=== PATIENT | male | born 1975 | race Two or more races ===

== ENCOUNTER 2024-10-04 12:56 | Emergency (ER) | payer MEDICAID, SELFPAY ==
--- NOTE | 2024-10-04 13:09 | PD.EDMEDCL ---
ED Medical Clearance RME/HPI General Stated complaint: MEDICAL CLEARANCE Time Seen by Provider: 10/04/24 12:58 Arrival date/time: 10/04/24 12:56 RME / HPI RME / HPI Narrative: 48-year-old male patient with no significant medical history, was brought in by law enforcement for medical clearance. Patient apparently was trespassing on property, the desktop engineer called the police and patient was picked up ,brought in for medical clearance. Currently patient is denying any complaints. Related Information Allergies Allergy/AdvReac Type Severity Reaction Status Date / Time No Known Allergies Allergy Unknown Uncoded 01/28/04 09:19 Review of Systems Review of Systems Narrative Review of Systems: Review of system reviewed and within normal limits except mentioned in HPI ED Exam Narrative Physical exam: VITAL SIGNS: Reviewed. GENERAL APPEARANCE: Alert and interactive, follows commands, no acute distress, HEAD AND FACE: Non-traumatic. ENT: PERRL, pink conjunctivitis, eyelid no trauma, Mucous membrane moist. NECK: Supple, nontender, no nuchal rigidity. CHEST: No tenderness, no crepitus, no paradoxical movement, no retractions. LUNGS: Clear, well ventilated, symmetric, no rales, no wheezing, no ronchi, no stridor, good breath sounds bilaterally. HEART: Regular rate, regular rhythm, no murmur, no gallops. ABDOMEN: Soft, positive bowel sounds, nondistended, no guarding, nontender, no rebound, no masses, RECTAL: Deferred. GENITAL: Deferred. NEUROLOGICAL: Gross motor function intact sensory function intact, Appropriate for age. MUSCULOSKELETAL: low back nontender, full range of motion. EXTREMITIES: Nontender, full range of motion. SKIN: Color pink, dry, no rash, no lacerations, no abrasions, no contusions. LYMPHATICS: Deferred. Course Quality Measures none Medical Clearance MDM Narrative MDM Narrative:: 48-year-old male patient with no significant medical history, was brought in by law enforcement for medical clearance. Patient apparently was trespassing on property, the desktop engineer called the police and patient was picked up ,brought in for medical clearance. Currently patient is denying any complaints. Patient data External records reviewed:: None Clinical information provided by:: none Social determinants that could affect healthcare access:: substance use Patient has the following chronic illnesses:: None How is presenting disease/condition affected by chronic disease/condition?: no chronic disease Evaluation data The following diagnostics were reviewed and interpreted by me:: other (specify) (None) Lab and/or radiology exams considered but not ordered:: None Interpretation Summary: None Medications / Prescriptions Medications or Prescriptions considered but not ordered:: None Medication administrations:: None Consultations Consultation(s) initiated? (list below): No Diagnosis Medical Clearance Differential Diagnosis: other (Medical clearance for incarceration,) Most likely diagnosis given after review of the tests above:: Medical clearance for incarceration Admission Indicated Admission indicated?: not indicated Explain why admission is indicated or not indicated:: Patient is medically cleared. Patient is denying any complaints Admission Request Was there a request for admission?: No Disposition Plan Disposition Plan: Discharge Discharge Attestation Discharge Attestation: Patient condition: Stable Discharge Plan Plan Patient Disposition: HOME (Self Care) Disposition Comment: stable Problem List Clinical Impression: Medical clearance for incarceration Patient/Caregiver Discharge Instructions Education Materials: Reducing Your Health Risks ... Additional Instructions: Thank you for the opportunity for serving you today. You are stable for discharged . You are advised to: Follow-up with your PCP in 1 to 2 days Return to ED for worsening of symptoms Increase oral fluids Print Language: Macedonian Stand Alone Forms: Claudine Award Info., Patient Portal Info Letter SHELLI/CARRIE Supervising Physician SHELLI/CARRIE Supervising Physician: MD Danny
[2024-10-04 13:17] VITALS: BMI 26.3
[2024-10-04 13:20] VITALS: BP 149/86; PULSE 89; RESP 18; TEMP 36.6; O2SAT 98
== END 2024-10-04 13:41 | disposition home or self-care (01) ==
LOC: SERX 13:36
PROVIDERS: Emergency Provider Emergency Medicine
DX: Z02.89 Encounter for other administrative examinations (principal)
CPT/HCPCS: 99281

== ENCOUNTER 2025-10-15 02:53 | Inpatient (IN) | payer MEDICAID, SELFPAY ==
[2025-10-15] VITALS (29 sets, daily range): BP systolic 147–246; BP diastolic 96–153; PULSE 67–103; RESP 13–37; TEMP 36.6–36.9; O2SAT 92–99; BMI 29.9
--- NOTE | 2025-10-15 04:19 | XR_ITS ---
EXAMINATION: PA lateral chest 2 views TECHNIQUE: Upright PA lateral chest 2 views Date and time: October 15, 2025, 0421 hours INDICATIONS: Coughing beginning 6 weeks ago with chest pain today. FINDINGS: Mild heart failure Moderate enlargement cardiac contour Prominent vascular congestion including central vascular engorgement Subtle septal edema at the lung bases IMPRESSION: Mild CHF
--- NOTE | 2025-10-15 04:20 | PD.EDRME ---
Rapid Medical Screening Exam E Arrival date/time: 10/15/25 02:53 50M with no significant PMH presents to ED with 2 months of cough and intermittent SOB. Patient came into today because SOB is getting worse. Patient was given course of amoxicillin w/o improvement. Chief Complaint: Shortness of Breath/Dyspnea Vital signs: Vital Signs Temperature 98.3 F 10/15/25 04:03 Pulse Rate 93 10/15/25 04:03 Respiratory Rate 24 H 10/15/25 04:03 Blood Pressure 246/149 H 10/15/25 04:03 Pulse Oximetry (%) 97 10/15/25 04:03 Oxygen Delivery Method Room Air 10/15/25 04:03 Exam: Increased WOB, but clear lungs. Clinical Impression: CHF vs CAP vs PE vs hypertensive urgency/emergency
[2025-10-15] MEDS: NITROGLYCERIN 0.4 MG SUBL BTL #25 SL (04:44)
--- NOTE | 2025-10-15 04:47 | EKG_ITS ---
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
[2025-10-15 05:43] LABS: Lactate (Lactic Acid) 1.2 mMol/L (0.4-2.0)
[2025-10-15 05:43] LABS: Collection Type, Urine Clean Catch
[2025-10-15 06:01] LABS: Bilirubin,Urine Negative (Negative); Blood,Urine Negative (Negative); Clarity,Urine Clear (Clear/Hazy); Color,Urine Lt-Yellow (Lt Yel-Yel); Culture Indicated,Urine Not Indicated; Glucose, Urine Trace (Negative); Ketones,Urine Negative (Negative); Leukocyte Esterase,Urine Negative (Negative); Nitrite,Urine Negative (Negative); PH,Urine 6.0 (5.0-7.0); Protein,Urine Trace (Neg - Trace); RBC,Urine 3 /hpf (0-3); Specific Gravity,Urine 1.020 (1.001-1.035); Squamous Epithelial Cell,Urine < 1 /hpf (0-5); Urobilinogen,Urine Negative mg/dL (0.0-1.0); WBC,Urine < 1 /hpf (0-5)
[2025-10-15 06:15] LABS: Basophils # (Auto) 0.1 Thou/mm3 (0.0-0.2); Basophils % (Auto) 1 % (0-2.5); Eosinophils # (Auto) 0.2 Thou/mm3 (0.0-0.5); Eosinophils % (Auto) 2 % (0-10); Hematocrit 39.5 % (41.0-53.0); Hemoglobin 13.4 g/dL (13.5-16.0); Immature Granulocytes Auto 0.03 Thou/mm3 (0.00-0.00); Lymphocytes # (Auto) 1.7 Thou/mm3 (1.0-4.8); Lymphocytes % (Auto) 17 % (10-50); Mean Corpuscular HGB Conc 33.9 g/dl (31.0-37.0); Mean Corpuscular Hemoglobin 30.5 pg (25.0-35.0); Mean Corpuscular Volume 90 fL (80-100); Monocytes # (Auto) 0.9 Thou/mm3 (0.0-0.8); Monocytes % (Auto) 9 % (0-12); Neutrophils # (Auto) 7.2 Thou/mm3 (1.8-7.7); Neutrophils % (Auto) 71 % (37-80); Nucleated Red Blood Cell # 0.00 Thou/mm3 (0.00-0.00); Nucleated Red Blood Cell % 0 /100 WBC (0); Platelet Count 276 Thou/mm3 (140-440); RDW Standard Deviation 42.6 fL (35.1-43.9); Red Blood Count 4.39 Miln/mm3 (4.50-5.90); White Blood Count 10.1 Thou/mm3 (3.8-10.6)
--- NOTE | 2025-10-15 06:15 | EDNOTE_ITS ---
ED SOB =RME/HPI General Chief Complaint: Shortness of Breath/Dyspnea Stated Complaint: cough, diff breathing Time Seen by Provider: 10/15/25 06:12 Arrival date/time: 10/15/25 02:53 RME / HPI RME / HPI Narrative: 10/15/25 02:53 50M with no significant PMH presents to ED with 2 months of cough and intermittent SOB. Patient came into today because SOB is getting worse. Patient was given course of amoxicillin w/o improvement. DR. MIRZA MAIN ED EVALUATION 50 year old male with no stated chronic medical history presents to the ED for evaluation of shortness of breath beginning 1 month ago. Described feeling he is not getting enough air with no known modifying factors at home. Accompanied by subjective fevers, chills, and nonproductive cough. Additionally reported 1 week ago he consulted his dentist at [facility] for dental pain and diagnosed with a dental abscess. States he was told due to his blood pressure they were unable to perform any dental work and given an antibiotic injection. States he has yet to consult with PCP regarding elevated blood pressure. No other associated symptoms reported. Exam: Increased WOB, but clear lungs. Impression: CHF vs CAP vs PE vs hypertensive urgency/emergency Related Data Allergies Allergy/AdvReac Type Severity Reaction Status Date / Time No Known Allergies Allergy Unknown Uncoded 10/15/25 04:07 Review of Systems Review of Systems Systems Reviewed: All systems reviewed, normal except as documented Past Medical History Past Medical History CARDIAC: Positive Hypercholesterolemia and Hypertension GASTROINTESTINAL: Positive Gastrointestinal Disorders and Ulcer Surgical History SURGICAL: Positive Abdominal Surgery (GASTRIC ULCER REPAIR) Social History SMOKING STATUS: Current every day smoker ED Exam Narrative Physical exam: GENERAL APPEARANCE: alert and oriented x 4, well-developed, well- nourished,diaphoretic, mildly plethoric HEENT: Normocephalic, atraumatic; pupils equal, round, reactive to light; EOMI; mucous membranes pink, moist; oropharynx clear NECK: Supple LUNGS: Upper airway noise, CTABL; no wheezes, no rales, no rhonchi HEART: Regular rate, regular rhythm; normal S1, S2; no murmurs ABDOMEN: non distended; normal BS; soft, no tenderness, no guarding, no rebound; no masses, no organomegaly, no hernia EXTREMITIES: atraumatic; no edema NEUROLOGIC: awake; alert and oriented x4; cranial nerves II-XII grossly intact; no focal sensory or motor deficits PSYCHIATRIC: appropriate mood and affect SKIN: warm, dry, normal color; no rashes Course Quality Measures none Orders Category Date Time Status EKG (ED ONLY) *Do not use* NOW Care 10/15/25 04:47 Completed EKG (ED Only) Stat Exams 10/15/25 04:47 Draft XR chest 2V Stat Exams 10/15/25 04:19 Completed B-Type Natriuretic Peptide Stat Lab 10/15/25 04:37 Completed CBC Stat Lab 10/15/25 04:37 Completed COVID-19 Antigen (In-House) Stat Lab 10/15/25 07:37 Completed Cocci Serology IgM with reflex to IgG [Cocci Serology, Lab 10/15/25 04:37 Received Unk History] Stat Comprehensive Metabolic Panel Stat Lab 10/15/25 04:37 Completed Drug Screen,Urine Stat Lab 10/15/25 04:25 Completed FLU A&B [Influenza A & B Rapid Panel] Stat Lab 10/15/25 07:37 Completed Lactate (Lactic Acid) Stat Lab 10/15/25 05:40 Completed Mag [Magnesium] Urgent Lab 10/15/25 04:37 Completed Partial Thromboplastin Time Stat Lab 10/15/25 04:37 Completed Procalcitonin Stat Lab 10/15/25 04:37 Completed Prothrombin Time with INR Stat Lab 10/15/25 04:37 Completed Troponin I Stat Lab 10/15/25 04:37 Completed Urinalysis, C/S if Indicated Stat Lab 10/15/25 04:25 Completed Aspirin Chew Med 10/15/25 06:36 Discontinued 324 mg PO X1 ONE Labetalol* IV [Trandate* IV] Med 10/15/25 06:40 Discontinued 20 mg IVP X1 ONE Magnesium Sulfate 2 GM Ivpb [Magnesium Sulfate Ivpb] Med 10/15/25 07:17 Discontinued 2 gm in 50 ml IV X1 Nitroglycerin [Nitrostat 1/150] Med 10/15/25 04:19 Discontinued 0.4 mg SL X1 ONE POTASSIUM CHL 10% Liq 15 ML Med 10/15/25 07:17 Discontinued 40 meq PO X1 ONE hydrALAZINE HCL [Apresoline] Med 10/15/25 04:19 Discontinued 25 mg PO X1 ONE Vital Signs Vital signs: Vital Signs Temperature 98.3 F 10/15/25 04:03 Pulse Rate 93 10/15/25 04:03 Respiratory Rate 24 H 10/15/25 04:03 Blood Pressure 246/149 H 10/15/25 04:03 Pulse Oximetry (%) 97 10/15/25 04:03 Oxygen Delivery Method Room Air 10/15/25 04:03 Pulse ox is 97% on room air which is adequate. Shortness of Breath / Dyspnea MDM Narrative MDM Narrative:: Sophy Phipps am scribing for and in the presence of Dr. Mirza. 0705a: I spoke with hospitalist for admission. Discussed patients PMHx, HPI, ED course, exam findings, labs, and radiology results. Patient data External records reviewed:: [facility] previous records Clinical information provided by:: patient Social determinants that could affect healthcare access:: none Patient has the following chronic illnesses:: No known chronic medical hx How is presenting disease/condition affected by chronic disease/condition?: no chronic disease Evaluation data The following diagnostics were reviewed and interpreted by me:: lab results, radiology exam(s) and EKG tracing(s) (EKG @ 04:50am, interpreted by me, normal sinus rhythm, rate 90, ST depression V3-V5, right bundle branch block, IVCD, T- wave inversion in lead III V1 and V1 V2. No previous EKG for comparison. ) Lab and/or radiology exams considered but not ordered:: None Interpretation Summary: Ordering Physician: Marty Hernandez PA-C Date of Service: 10/15/25 Procedure(s): XR chest 2V Accession Number(s): [id number] cc: Honorio Taylor MD; NO PRIMARY/FAMILY,PHYSICIAN; Marty Hernandez PA-C~ EXAMINATION: PA lateral chest 2 views TECHNIQUE: Upright PA lateral chest 2 views Date and time: October 15, 2025, 0421 hours INDICATIONS: Coughing beginning 6 weeks ago with chest pain today. FINDINGS: Mild heart failure Moderate enlargement cardiac contour Prominent vascular congestion including central vascular engorgement Subtle septal edema at the lung bases IMPRESSION: Mild CHF Dictated By: Honorio Taylor MD Signed By: <Electronically signed by Honorio Taylor MD in OV> 10/15/25 0718 Medications / Prescriptions Medications or Prescriptions considered but not ordered:: None Medication administrations:: Medication Administration History Acetaminophen (Acetaminophen 325 Mg Tablet) 650 mg PO Q6H PRN PRN Reason: Fever >100.4 or pain Stop: 11/14/25 07:48 Aspirin (Aspirin Ec 81 Mg Tabec) 81 mg PO QDAY [facility] Stop: 11/15/25 08:59 Atorvastatin Calcium (Atorvastatin Calcium 20 Mg Tablet) 40 mg PO HS [facility] Stop: 11/14/25 20:59 Hydralazine HCl (Hydralazine Inj 20 Mg/Ml Vial) 10 mg IVP Q4HR PRN PRN Reason: SBP >180 Stop: 11/14/25 08:09 Last Admin: 10/15/25 10:14 Dose: 10 mg Documented By: MARY Heparin Sodium/Dextrose (Heparin In D5w Ivpb) 25,000 unit in 250 mls @ 9.798 mls/hr IV .Q24H [facility]; Protocol Stop: 10/29/25 09:44 Discontinued Medications Aspirin (Aspirin 81 Mg Chew) 324 mg PO X1 ONE Stop: 10/15/25 06:37 Last Admin: 10/15/25 06:42 Dose: 324 mg Documented By: WANDA Heparin Sodium (Porcine) (Heparin Sod Inj 5000 Unit/Ml Vial) 5,000 unit SC Q12HR [facility] Stop: 10/29/25 08:59 Heparin Sodium (Porcine) (Heparin Sod Inj 5000 Unit/Ml Vial) 5,000 unit SC Q8HR SHANNAN Stop: 10/29/25 13:59 Heparin Sodium (Porcine) (Heparin Sod Inj 5000 Unit/Ml Vial) 4,000 unit IV X1 ONE; Protocol Stop: 10/15/25 09:43 Hydralazine HCl (Hydralazine Hcl 25 Mg Tablet) 25 mg PO X1 ONE Stop: 10/15/25 04:20 Last Admin: 10/15/25 04:43 Dose: 25 mg Documented By: WANDA Magnesium Sulfate (Magnesium Sulfate Ivpb) 2 gm in 50 mls @ 25 mls/hr IV X1 ONE Stop: 10/15/25 09:16 Last Admin: 10/15/25 07:46 Dose: 25 mls/hr Documented By: MARY Labetalol HCl (Labetalol Inj 5 Mg/Ml Vial 4 Ml) 20 mg IVP X1 ONE Stop: 10/15/25 06:41 Last Admin: 10/15/25 07:05 Dose: 20 mg Documented By: WANDA Nitroglycerin (Nitroglycerin 0.4 Mg Subl Btl #25) 0.4 mg SL X1 ONE Stop: 10/15/25 04:20 Last Admin: 10/15/25 04:44 Dose: 0.4 mg Documented By: WANDA Potassium Chloride (Potassium Chloride 10% 20 Meq/15 Ml Udc) 40 meq PO X1 ONE Stop: 10/15/25 07:18 Last Admin: 10/15/25 07:46 Dose: 40 meq Documented By: MARY See above Consultations Consultation(s) initiated? (list below): Yes Consultation #1 (Physician, Specialty, Details): See MDM Diagnosis Shortness of Breath Differential Diagnosis: acute exacerbation of chronic obstructive airways disease, congestive heart failure, community acquired pneumonia and asthma with exacerbation Most likely diagnosis given after review of the tests above:: Hypertensive emergency Elevated troponin Cough Admission Indicated Admission indicated?: indicated Admission Request Was there a request for admission?: Yes Admission Attestation Admission request attestation: Discussed case with [] from Hospitalist service regarding admission. Discussed patients ED course, exam findings, labs, and radiology results. The Hospitalist [agrees,declines] to accept the patient for admission. Disposition Plan Disposition Plan: Admit Discharge Plan Plan Patient Disposition: Admit Acute Care w/in Hospital Problem List Clinical Impression: Hypertensive emergency, Elevated troponin, Cough
[2025-10-15 06:23] LABS: Amphetamine/Methamp Scrn,U Positive (Negative); Barbiturate Screen,Urine Negative (Negative); Benzodiazepines Screen,Urine Negative (Negative); Benzoylecgonine Screen, Ur Negative (Negative); Fentanyl Screen,Urine Negative (Negative); Opiate Screen,Urine Negative (Negative); THC Screen,Urine Negative (Negative)
[2025-10-15 06:30] LABS: Alanine Aminotransferase 117 U/L (10-49); Albumin, Serum 4.3 gm/dL (3.5-5.0); Albumin/Globulin Ratio 1.8 (1.2-2.2); Alkaline Phosphatase 144 U/L (46-116); Anion Gap 11 (7-16); Aspartate Amino Transferase 88 U/L (0-34); BUN/Creatinine Ratio 14 Ratio (12-20); Bilirubin,Total 0.5 mg/dL (0.3-1.2); Blood Urea Nitrogen 21 mg/dL (9-23); Calcium 8.8 mg/dL (8.3-10.6); Calcium (Corrected) 8.8 mg/dL (8.5-10.1); Carbon Dioxide 25.1 mMol/L (20.0-31.0); Chloride 107 mMol/L (98-107); Creatinine (Component) 1.5 mg/dL (0.6-1.3); Estimated Creatinine Clearance 58.0 mL/min (>60); Globulin 2.4 gm/dL (2.3-3.5); Glucose 107 mg/dL (74-106); Osmolality,Calculated 287 (275-295); Potassium 3.8 mMol/L (3.4-5.1); Procalcitonin 0.11 ng/ml (0.0-0.49); Sodium 143 mMol/L (136-145); Total Protein 6.7 gm/dL (5.7-8.2); eGFR 56 See Note
[2025-10-15 06:32] LABS: Troponin I 0.274 ng/mL (0.0-0.045)
[2025-10-15 06:41] LABS: INR 1.0 (0.9-1.3); Partial Thromboplastin Time 27.6 Seconds (22.0-36.0); Prothrombin Time 10.9 Seconds (9.0-12.2)
[2025-10-15] MEDS: ASPIRIN 81 MG CHEW 324 MG PO (06:42)
[2025-10-15] MEDS: Magnesium Sulfate 2 GM Ivpb 2 GM/50 ML BAG IV (07:46)
[2025-10-15] MEDS: POTASSIUM CHLORIDE 10% 20 MEQ/15 ML UDC 40 MEQ PO (07:46)
--- NOTE | 2025-10-15 07:53 | ECHO_ITS ---
Patient Info Name: Rigoberto Holloway Age: 50 years : 1975 Gender: Male Ht: 165 cm Wt: 82 kg BSA: 1.96 m2 BP: 180 / 133 mmHg HR: 88 bpm Exam Date: 10/15/2025 12:38 PM Admit Date: 10/15/2025 Site: [facility] Room Number: 250 Patient Status: I Exam Type: CA echo doppler complete Community Coordinator For High School: Radha De La Rosa Ordering Physician: Geovanna Garcia Study Info Indications chest pain and SOB - Primary Location: S2SX Left Ventricular Outflow Tract Name Value Normal LVOT 2D LVOT Diameter 2.0 cm LVOT Doppler LVOT Peak Velocity 106 cm/s LVOT Mean Gradient 3 mmHg LVOT VTI 16 cm LVOT VTI/AV VTI Ratio 0.8 LVOT Stroke Volume 51 ml Pulmonic Valve Name Value Normal PV Doppler PV Peak Velocity 88 cm/s PV Regurgitation Doppler [place] Peak End Diastolic Velocity 163 cm/s Mitral Valve Name Value Normal MV Doppler MV Decel Wilson 1,417 cm/s2 MV PHT 21 ms MV Area (PHT) 10.3 cm2 4.0-5.0 MV Diastolic Function MV E Peak Velocity 105 cm/s MV A Peak Velocity 49 cm/s MV E/A 2.1 MV Annular TDI MV Septal e' Velocity 4.5 cm/s MV E/e' (Septal) 23.5 MV Lateral e' Velocity 5.4 cm/s MV E/e' (Lateral) 19.3 MV e' Average 4.95 cm/s MV E/e' (Average) 21.4 Tricuspid Valve Name Value Normal TV Regurgitation Doppler TR Peak Velocity 381 cm/s Estimated PAP/RSVP RA Pressure 3 mmHg <=5 PA Systolic Pressure 61 mmHg <36 RV Systolic Pressure 61 mmHg <36 TV Annular TDI TV Lateral Linda s' Velocity 10.9 cm/s >=9.5 Aortic Valve Name Value Normal AV 2D/MM AV Cusp Sep (MM) 1.5 cm AV Doppler AV Peak Velocity 133 cm/s AV Mean Gradient 4 mmHg AV VTI 20 cm AV Area (Cont Eq VTI) 2.5 cm2 >=3.0 AV Area (Cont Eq Boy) 2.5 cm2 AV DI (Boy) 0.80 AV Regurgitation 2D LVOT Area 3.1 cm2 Ventricles Name Value Normal LV Dimensions 2D/MM IVS Diastolic Thickness (2D) 1.1 cm 0.6-1.0 LVID Diastole (2D) 5.8 cm 4.2-5.8 LVIW Diastolic Thickness (2D) 1.3 cm 0.6-1.0 LVID Systole (2D) 4.9 cm 2.5-4.0 LVOT Diameter 2.0 cm LV Mass (2D Cubed) 297.00 g 88.00-224.00 LV Mass Index (2D Cubed) 152 g/m2 49-115 Relative Wall Thickness (2D) 0.45 <=0.42 IVS/LVIW Diastolic Thickness (2D) 0.85 0.00-1.50 LV Fractional Shortening/Ejection Fraction 2D/MM LV Fractional Shortening (2D) 16 % 25-43 LV EF (2D Teichholz) 32 % LV Diastolic Volume (4C MOD) 175 ml LV EF (4C MOD) 30 % LV Diastolic Volume (2C MOD) 162 ml LV EF (2C MOD) 42 % LV Diastolic Volume (BP MOD) 170 ml 62-150 LV Diastolic Volume Index (BP MOD) 87 ml/m2 34-74 LV Systolic Volume (BP MOD) 113 ml 21-61 LV Systolic Volume Index (BP MOD) 58 ml/m2 11-31 LV EF (BP MOD) 34 % 52-72 LV Diastolic Length (4C) 8.6 cm LV Systolic Length (4C) 8.3 cm LV Stroke Volume (4C MOD) 53 ml RV Dimensions 2D/MM TV Lateral Linda s' Velocity 10.9 cm/s >=9.5 Atria Name Value Normal LA Dimensions LA Volume (4C A-L) 90 ml LA Volume (BP A-L) 119 ml Left Ventricle Left ventricular chamber dimension is mildly enlarged. Left ventricular systolic function is moderately reduced with visually estimated ejection fraction of 30-35%. There is moderate concentric hypertrophy noted in the left ventricle. The basal inferior wall, and basal anterior wall are akinetic. The apex, inferoseptal wall, anterolateral wall, mid inferior wall, and mid anterior wall are hypokinetic. The basal anteroseptal, mid anteroseptal, basal inferolateral wall, and mid inferolateral wall are not scored. Left ventricular segmental wall motion is abnormal. There is grade II diastolic dysfunction in the left ventricle. Right Ventricle Right ventricular chamber dimension is mildly enlarged. Right ventricular systolic function is normal. Flattening of the ventricular septum in mid to late systole consistent with right ventricular volume overload. Left Atrium Left atrial chamber dimension is severely enlarged. Right Atrium Right atrial chamber dimension is normal. Aortic Valve The aortic valve is trileaflet. There is no aortic valve sclerosis. There is no aortic valve stenosis with a peak velocity of 133 cm/s, mean gradient of 4 mmHg, and aortic valve area of 2.5 cm2. There is mild aortic valve regurgitation. Pulmonic Valve The pulmonic valve is normal. There is no pulmonic valve stenosis. There is mild pulmonic regurgitation. Mitral Valve The mitral valve has thickened leaflets. There is no mitral valve stenosis. There is mild mitral valve regurgitation. Tricuspid Valve The tricuspid valve leaflets are normal. There is no tricuspid valve stenosis. There is mild to moderate tricuspid valve regurgitation. Pulmonary hypertension, estimated pulmonary arterial systolic pressure is 61 mmHg and systemic blood pressure of 180 mmHg in systole. Pericardium/Pleural The pericardium appears normal. There is no pericardial effusion. No pleural effusion visualized. Inferior Vena Cava Normal inferior vena cava with >50% collapse upon inspiration consistent with normal right atrial pressure, 3 mmHg. Aorta The aortic measurements are indexed to age and body surface area. The aortic root at the sinus of Valsalva is not well visualized. The prox ascending aorta is not well visualized. Summary 1. Left ventricle size is mildly enlarged and systolic function is moderately reduced. Estimated ejection fraction is 30-35%. There is grade II diastolic dysfunction. There is moderate concentric hypertrophy noted. 2. Right ventricle chamber size is mildly enlarged and systolic function is normal. Estimated RVSP is 61 mmHg. Severe HTN. 3. Flattening of the ventricular septum in mid to late systole consistent with right ventricular volume overload. 4. There is mild aortic valve regurgitation. 5. There is mild mitral valve regurgitation. 6. There is mild to moderate tricuspid valve regurgitation. 7. mild pulmonic valve regurgitation. 8. The left atrium is severely enlarged. The right atrium is normal. 9. Normal IVC with estimated RA pressure 3 mmHg. Report Signatures Finalized by Tay Ross on 10/16/2025 08:44 AM
[2025-10-15 08:08] LABS: COVID-19 Antigen (In-House) Negative (Negative); Influenza A Ag Negative; Influenza B Ag Negative
[2025-10-15 08:11] LABS: Magnesium 2.1 mg/dL (1.6-2.6)
[2025-10-15 09:28] LABS: B-Type Natriuretic Peptide 722 pg/mL (0-100)
--- NOTE | 2025-10-15 09:50 | PC.SS ---
Patient Rigoberto Holloway is a 50 Year old male admitted for ACS. SS conducted bedside contact with the patient conduct initial assessment and to discuss discharge planning.? Patient confirmed demographic information.? Patient resides at home with his parents. Patient reports he does not utilize any source of DME to assist with ambulation. Patient is able to complete all ADL's independently.? Patient confirmed surrogate medical decision maker is his mother, Rasheeda Holloway, 58.?Pharmacy of choice is [facility]. Patient reports he does not have a PCP at the time. At time of discharge patient wishes to return back home. Family will provide transportation. No further intervention required at this time, social scientist will be available to address any further concerns.? Next of Kin: Mother, Rasheeda Holloawy [phone] D/C Plan: Home
[2025-10-15] MEDS: hydrALAZINE INJ 20 MG/ML VIAL 10 MG IVP (10:14)
--- NOTE | 2025-10-15 10:22 | PC.NURSE ---
report given to tele floor nurse shiela will reume care for pt. rm 250
[2025-10-15] MEDS: HEPARIN SOD INJ 5000 UNIT/ML VIAL 4000 UNIT IV (10:48)
[2025-10-15 10:49] LABS: Troponin I 0.259 ng/mL (0.0-0.045)
[2025-10-15] MEDS: Heparin/D5w 25K 250 ML Ivpb 25,000 UNIT/250 ML BAG 9.312 UNIT IV (10:49)
[2025-10-15 14:04] LABS: Cocci Serology, IgM Negative (Negative)
--- NOTE | 2025-10-15 14:46 | PD.RESHP ---
Documentation for date of: 10/15/25 HPI History of Present Illness History of present illness: Rigoberto Holloway 50M pmhx significant for HTN not on meds who presents to [facility] ED 10/15 with chest pain and SOB, admitted for hypertensive emergency and NSTEMI. Patient reports that chest pain and shortness of breath has been occurring for the past month and a half at rest and on exertion. Described as central, nonradiating however does experience diaphoresis and shortness of breath. Patient reports few episodes but every day which resolves after he takes a few deep breaths. Not positional dependent or reproducible on palpation. Also endorses orthopnea, PND and occasional leg swelling. Patient does not check his blood pressure at home nor was ever prescribed any medications. Denies recent illness, nausea vomiting or palpitations. 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 EKG shows sinus rhythm with right bundle branch block with possible ST depression QTc 526. In ED, given p.o. hydralazine 25 mg x 1, nitroglycerin sublingual x 1, loading dose aspirin, labetalol 20 mg IVP, magnesium and potassium. Chest x-ray shows mild heart failure with prominent vascular congestion with subtle septal edema and lung bases. Cardiology consulted for NSTEMI. Patient was admitted for further workup. Review of Systems Review of Systems Systems Reviewed: All systems reviewed, normal except as documented Exam Vital Signs Temp Pulse Resp BP Pulse Ox O2 Del Method O2 Flow Rate 97.8 F 76 20 164/113 H 98 Nasal Cannula 2 10/15/25 11:08 10/15/25 11:08 10/15/25 11:08 10/15/25 11:08 10/15/25 11:08 10/15/25 11:08 10/15/25 11:08 Narrative Exam GENERAL: AOx3, no acute distress, mildly diaphoretic HEENT: mucous membranes moist, bilateral sclera anicteric CARDIOVASCULAR: regular rate and rhythm, S1/S2 present, no murmurs appreciated PULMONARY: clear to auscultation bilaterally, no rales/rhonchi/wheezes ABDOMINAL: soft, non-tender, non-distended, no rebound/guarding, bowel sounds present EXTREMITIES: no peripheral edema SKIN: warm and dry, intact, no rashes NEURO: CN II-XII grossly intact, no focal deficits, alert, following commands Results: Labs 10/15/25 04:37 10/15/25 04:37 Labs: Short CBC 10/15/25 Range/Units 04:37 WBC 10.1 (3.8-10.6) Thou/mm3 Hgb 13.4 L (13.5-16.0) g/dL Hct 39.5 L (41.0-53.0) % Plt Count 276 (140-440) Thou/mm3 BMP 10/15/25 04:37 Sodium 143 Potassium 3.8 Chloride 107 Carbon Dioxide 25.1 BUN 21 Creatinine 1.5 H Glucose 107 H Calcium 8.8 Cardiac Enzymes 10/15/25 10/15/25 Range/Units 04:37 10:05 Troponin I 0.274 H* 0.259 H* (0.0-0.045) ng/mL Liver Function 10/15/25 Range/Units 04:37 Total Bilirubin 0.5 (0.3-1.2) mg/dL AST 88 H (0-34) U/L ALT 117 H (10-49) U/L Alkaline Phosphatase 144 H (46-116) U/L Albumin 4.3 (3.5-5.0) gm/dL Urine 10/15/25 Range/Units 04:25 Urine Color Lt-Yellow (Lt Yel-Yel) Urine Clarity Clear (Clear/Hazy) Urine pH 6.0 (5.0-7.0) Ur Specific Ary 1.020 (1.001-1.035) Urine Protein Trace (Neg - Trace) Urine Glucose (UA) Trace (Negative) Quality Measures Quality Measures none Medications Home Medications and Allergies Allergies Allergy/AdvReac Type Severity Reaction Status Date / Time No Known Allergies Allergy Unknown Uncoded 10/15/25 04:07 Visit Medications Acetaminophen (Acetaminophen 325 Mg Tablet) 650 mg PO Q6H PRN PRN Reason: Fever >100.4 or pain Stop: 11/14/25 07:48 Aspirin (Aspirin Ec 81 Mg Tabec) 81 mg PO QDAY SHANNAN Stop: 11/15/25 08:59 Atorvastatin Calcium (Atorvastatin Calcium 20 Mg Tablet) 40 mg PO HS [facility] Stop: 11/14/25 20:59 Hydralazine HCl (Hydralazine Inj 20 Mg/Ml Vial) 10 mg IVP Q4HR PRN PRN Reason: SBP >180 Stop: 11/14/25 08:09 Last Admin: 10/15/25 10:14 Dose: 10 mg Heparin Sodium/Dextrose (Heparin In D5w Ivpb) 25,000 unit in 250 mls @ 9.312 mls/hr IV .Q24H SHANNAN; Protocol Stop: 10/29/25 09:44 Last Admin: 10/15/25 10:49 Dose: 12 units/kg/hr, 9.312 mls/hr Discontinued Medications Aspirin (Aspirin 81 Mg Chew) 324 mg PO X1 ONE Stop: 10/15/25 06:37 Last Admin: 10/15/25 06:42 Dose: 324 mg Heparin Sodium (Porcine) (Heparin Sod Inj 5000 Unit/Ml Vial) 5,000 unit SC Q12HR SHANNAN Stop: 10/29/25 08:59 Heparin Sodium (Porcine) (Heparin Sod Inj 5000 Unit/Ml Vial) 5,000 unit SC Q8HR SHANNAN Stop: 10/29/25 13:59 Heparin Sodium (Porcine) (Heparin Sod Inj 5000 Unit/Ml Vial) 4,000 unit IV X1 ONE; Protocol Stop: 10/15/25 09:43 Last Admin: 10/15/25 10:48 Dose: 4,000 unit Hydralazine HCl (Hydralazine Hcl 25 Mg Tablet) 25 mg PO X1 ONE Stop: 10/15/25 04:20 Last Admin: 10/15/25 04:43 Dose: 25 mg Magnesium Sulfate (Magnesium Sulfate Ivpb) 2 gm in 50 mls @ 25 mls/hr IV X1 ONE Stop: 10/15/25 09:16 Last Admin: 10/15/25 07:46 Dose: 25 mls/hr Heparin Sodium/Dextrose (Heparin In D5w Ivpb) 25,000 unit in 250 mls @ 9.798 mls/hr IV .Q24H SHANNAN; Protocol Stop: 10/29/25 09:44 Last Admin: 12/03/25 10:59 Dose: Not Given Labetalol HCl (Labetalol Inj 5 Mg/Ml Vial 4 Ml) 20 mg IVP X1 ONE Stop: 10/15/25 06:41 Last Admin: 10/15/25 07:05 Dose: 20 mg Nitroglycerin (Nitroglycerin 0.4 Mg Subl Btl #25) 0.4 mg SL X1 ONE Stop: 10/15/25 04:20 Last Admin: 10/15/25 04:44 Dose: 0.4 mg Potassium Chloride (Potassium Chloride 10% 20 Meq/15 Ml Udc) 40 meq PO X1 ONE Stop: 10/15/25 07:18 Last Admin: 10/15/25 07:46 Dose: 40 meq Assessment & Plan Plan Rigoberto Holloway 50M pmhx significant for HTN not on meds who presents to [facility] ED 10/15 with chest pain and SOB, admitted for hypertensive emergency and NSTEMI. #Hypertensive emergency Presents with BP 246/149 with troponin of 0.274 as endorgan damage, however NSTEMI type I cannot be excluded given comorbidity of hypertension. Patient's have a history of hypertension but does not take any medications at home. s/p hydralazine and labetalol in ED. Plan: - Goal of 25% reduction of blood pressure with the first 24 hours - Hydralazine 10 IVP q4h prn - Considering maintenance antihypertensive to be started tomorrow - F/u lipid panel, A1c and TSH for risk stratification #NSTEMI type I #Prolonged QTc Presents with chest pain and shortness of breath every day for the past month and a half at rest and on exertion. Central, nonradiating however does experience diaphoresis and shortness of breath. Endorses orthopnea, PND and occasional leg swelling. No hx of CHF. EKG shows right bundle branch block with possible ST depression and QTc 526. Troponin 0.274 plateaued. Ddx: NSTEMI type II given hypertensive emergency however NSTEMI type I cannot be ruled out due to comorbidities Plan: - Cardiology consulted, recs appreciated: Heparin GGT, loading dose aspirin and maintenance aspirin 81 mg daily, no plans for cardiac catheterization at this time - F/u TTE - Keep K>4 and Mg>2 at all times #Amphetamine abuse disorder #Nicotine dependence Patient has 22-90-ddhk-year history of smoking. Denies current illicit drug use however UDS positive for amphetamines. Plan: - Nicotine 14 mg QD - Extensively counseled on cessation of illicit substances Hospital management: Lines: PIV Diet: Cardiac Bowel: not indicated GI prophylaxis: not indicated DVT prophylaxis: heparin ggt Disposition: tele, heparin ggt, management of BP CODE STATUS: FULL CODE Plan of care discussed with attending Dr. Yusuf, and PGY-3 Dr. Kramer. Geovanna Garcia, DO PGY-1 Internal Medicine Senior Resident Attestation: The patient is a 50-year-old male with significant past medical history of hypertension without any medications presented to ED on 10/15/2025 with chief complaint of chest pain that started about 1.5 months ago, on and off, over central chest, no aggravating factor, but relieved on its own. His symptoms are also associated with SOB, and orthopnea, and about a week ago when he visited dentist, was recommended to visit ED for hypertensive urgency. Cardiac risk factor include 15 to 20 pack year of smoking, methamphetamine abuse disorder, and sedentary lifestyle. Initial blood pressure in the ED was 246/149, and was given labetalol 20 mg IVP, and EKG was significant for an NSTEMI on lead V2 and V3, with QTc of 526. He also received magnesium sulfate 2 g IV, and was given aspirin 324 mg. Physical examination was significant for mild bibasilar crackles, and 1-2+ bilateral lower limb pitting edema. Cardiology consultation was done, and he was started on heparin drip. We will obtain TTE, and pending cardiology recommendations. I discussed with and supervised the chief of internal medicine physician involved in the care of this patient. I personally saw and examined the patient and discussed the assessment and plan with the entire medicine team, including my attending. I agree with the assessment and plan as documented above. Tima Kramer MD PGY3 Internal Medicine Attending Provider Attestation/Addendum I or my resident physicians have discussed care with the ED physician and I have made the decision to admit. I have discussed and was present for the essential components of the history, physical examination, diagnosis, and treatment plan with the resident. I agree with the patient's care as documented by the resident and amended herein by me. Gabriel Yusuf DO. Although this document has been carefully reviewed, there may still be some phonetic and other typographical errors. These errors are purely grammatical due to imperfections in the software program and should not be construed in any way to compromise the substance of the patient's medical care during this visit.
--- NOTE | 2025-10-15 15:17 | PC.NURSE ---
per leave bingham catheter in place for DC.
[2025-10-15 17:24] LABS: Partial Thromboplastin Time 33.7 Seconds (22.0-36.0)
[2025-10-15 17:34] LABS: Troponin I 0.187 ng/mL (0.0-0.045)
[2025-10-15] MEDS: HEPARIN SOD INJ 5000 UNIT/ML VIAL 4000 UNIT IVP (17:40)
[2025-10-15] MEDS: ATORVASTATIN CALCIUM 20 MG TABLET 40 MG PO (21:10)
[2025-10-16] VITALS (78 sets, daily range): BP systolic 141–205; BP diastolic 83–135; PULSE 70–116; RESP 10–97; TEMP 36.2–36.9; O2SAT 88–99; BMI 28.4
[2025-10-16 00:38] LABS: Partial Thromboplastin Time 39.5 Seconds (22.0-36.0)
[2025-10-16] MEDS: HEPARIN SOD INJ 5000 UNIT/ML VIAL 2000 UNIT IV (01:17)
[2025-10-16] MEDS: hydrALAZINE INJ 20 MG/ML VIAL 10 MG IVP ×2 (01:19→08:05)
[2025-10-16 05:49] LABS: Basophils # (Auto) 0.1 Thou/mm3 (0.0-0.2); Basophils % (Auto) 1 % (0-2.5); Eosinophils # (Auto) 0.2 Thou/mm3 (0.0-0.5); Eosinophils % (Auto) 2 % (0-10); Hematocrit 42.3 % (41.0-53.0); Hemoglobin 14.1 g/dL (13.5-16.0); Immature Granulocytes Auto 0.04 Thou/mm3 (0.00-0.00); Lymphocytes # (Auto) 1.6 Thou/mm3 (1.0-4.8); Lymphocytes % (Auto) 15 % (10-50); Mean Corpuscular HGB Conc 33.3 g/dl (31.0-37.0); Mean Corpuscular Hemoglobin 30.6 pg (25.0-35.0); Mean Corpuscular Volume 92 fL (80-100); Monocytes # (Auto) 0.9 Thou/mm3 (0.0-0.8); Monocytes % (Auto) 8 % (0-12); Neutrophils # (Auto) 7.8 Thou/mm3 (1.8-7.7); Neutrophils % (Auto) 74 % (37-80); Nucleated Red Blood Cell # 0.00 Thou/mm3 (0.00-0.00); Nucleated Red Blood Cell % 0 /100 WBC (0); Platelet Count 278 Thou/mm3 (140-440); RDW Standard Deviation 44.1 fL (35.1-43.9); Red Blood Count 4.61 Miln/mm3 (4.50-5.90); White Blood Count 10.6 Thou/mm3 (3.8-10.6)
[2025-10-16 06:16] LABS: Alanine Aminotransferase 110 U/L (10-49); Albumin, Serum 4.3 gm/dL (3.5-5.0); Albumin/Globulin Ratio 1.7 (1.2-2.2); Alkaline Phosphatase 131 U/L (46-116); Anion Gap 12 (7-16); Aspartate Amino Transferase 55 U/L (0-34); BUN/Creatinine Ratio 9 Ratio (12-20); Bilirubin,Total 0.7 mg/dL (0.3-1.2); Blood Urea Nitrogen 13 mg/dL (9-23); Calcium 8.8 mg/dL (8.3-10.6); Calcium (Corrected) 8.8 mg/dL (8.5-10.1); Carbon Dioxide 24.2 mMol/L (20.0-31.0); Cardiac Risk Estimate 2.7 RATIO (4.0-6.7); Chloride 105 mMol/L (98-107); Cholesterol 165 mg/dL (132-200); Creatinine (Component) 1.4 mg/dL (0.6-1.3); Estimated Creatinine Clearance 60.7 mL/min (>60); Globulin 2.6 gm/dL (2.3-3.5); Glucose 185 mg/dL (74-106); HDL Cholesterol 62 mg/dL (40-60); LDL Cholesterol,Calculated 85 mg/dL (0-130); Magnesium 2.1 mg/dL (1.6-2.6); Osmolality,Calculated 286 (275-295); Phosphorous 3.1 mg/dL (2.4-5.1); Potassium 3.4 mMol/L (3.4-5.1); Sodium 141 mMol/L (136-145); Thyroid Stimulating Hormone 1.53 uIU/mL (0.55-4.78); Total Protein 6.9 gm/dL (5.7-8.2); Triglycerides 91 mg/dL (30-150); eGFR > 60 See Note
[2025-10-16 06:35] LABS: Glucose Estimated Average 114 mg/dL (80-131); Hemoglobin A1C 5.6 % Hgb (4.8-6.0)
--- NOTE | 2025-10-16 07:48 | PD.IMCONS ---
HPI Data of Consult Requesting Physician: Samm Yusuf DO Primary Care Provider: Physician No Primary/Family Consult Narrative History of present illness: This is a 50-year-old male patient pmhx significant for HTN Patient seen in the emergency room with chest pain shortness of breath Patient initial blood pressure was in the 200 range with hypertensive emergency Patient troponin was 0.2 repeat 0.1, EKG does not show any acute ST-T wave changes, sinus rhythm with right bundle branch block morphology cc:: cc: Samm Yusuf DO Meds Home Medications and Allergies Allergies Allergy/AdvReac Type Severity Reaction Status Date / Time No Known Allergies Allergy Unknown Uncoded 10/15/25 04:07 Exam Vital Signs Temp Pulse Resp BP Pulse Ox O2 Del Method O2 Flow Rate 98.2 F 87 24 H 175/105 H 95 Room Air 2 10/16/25 04:02 10/16/25 06:31 10/16/25 06:31 10/16/25 04:02 10/16/25 04:02 10/15/25 16:00 10/15/25 12:00 Routine HEENT Exam Head: Present normocephalic and atraumatic Eye: Present EOMI and PERRL ENT: Present mucous membranes moist Routine Neck Exam Neck: Present supple and trachea midline Routine Respiratory Exam Respiratory: Present chest non-tender, lungs clear, normal breath sounds and no resp distress Routine Cardiovascular Exam Cardiovascular: Present RRR Routine Abdominal Exam Abdominal: Present soft and normoactive bowel sounds Routine Extremities Exam Extremities: Present full ROM Routine Skin Exam Skin: Present intact, dry and warm Routine Neurological Exam Neurological: Present alert, oriented X3 and CN II-XII intact Routine Psychiatric Exam Psychiatric: Present normal affect and normal thought process Results Labs 10/16/25 04:36 10/16/25 04:36 Labs: Short CBC 10/16/25 Range/Units 04:36 WBC 10.6 (3.8-10.6) Thou/mm3 Hgb 14.1 (13.5-16.0) g/dL Hct 42.3 (41.0-53.0) % Plt Count 278 (140-440) Thou/mm3 BMP 10/16/25 04:36 Sodium 141 Potassium 3.4 Chloride 105 Carbon Dioxide 24.2 BUN 13 Creatinine 1.4 H Glucose 185 H D Calcium 8.8 Cardiac Enzymes 10/15/25 10/15/25 Range/Units 10:05 16:45 Troponin I 0.259 H* 0.187 H* (0.0-0.045) ng/mL Liver Function 10/16/25 Range/Units 04:36 Total Bilirubin 0.7 (0.3-1.2) mg/dL AST 55 H (0-34) U/L ALT 110 H (10-49) U/L Alkaline Phosphatase 131 H (46-116) U/L Albumin 4.3 (3.5-5.0) gm/dL Assessment and Plan Assessment and plan (1) Cough: Status: Acute (2) Elevated troponin: Status: Acute (3) Hypertensive emergency: Status: Acute Additional Assessment & Plan Additional Plan: Continue current medical management Continue antihypertensive medications Troponin leak is most likely related to hypertensive emergency We will continue monitoring him Follow-up echo report
[2025-10-16] MEDS: FUROSEMIDE INJ 10 MG/ML 4ML VIAL 40 MG IVP (07:55)
[2025-10-16] MEDS: Heparin/D5w 25K 250 ML Ivpb 25,000 UNIT/250 ML BAG 13.968 UNIT IV (08:00)
[2025-10-16] MEDS: ASPIRIN EC 81 MG TABEC PO (09:18)
[2025-10-16] MEDS: NICOTINE PATCH 14 MG/24 HR PATCH.TD24 TOP (09:19)
[2025-10-16 10:18] LABS: Partial Thromboplastin Time 43.9 Seconds (22.0-36.0)
[2025-10-16] MEDS: HEPARIN SOD INJ 5000 UNIT/ML VIAL 2000 UNIT IVP (10:52)
[2025-10-16] MEDS: ACETAMINOPHEN 325 MG TABLET 650 MG PO ×2 (11:36→19:44)
[2025-10-16 12:11] LABS: Cocci Serology, IgG Negative (Negative)
[2025-10-16 12:18] LABS: Ferritin 93 ng/mL (10.5-307.3); Iron 89 mcg/dL (65-175); Percent Iron Saturation 27 % (20-55); Total Iron Binding Capacity 321 mcg/dL (250-425); Unsaturated Iron Binding 232 (225-295)
--- NOTE | 2025-10-16 13:37 | PD.RESPRO ---
Documentation for date of: 10/16/25 Subjective Subjective Interval history: No acute overnight events. Patient seen and examined at bedside. Patient endorses resolution of chest pain and shortness of breath. No new complaints. SBP 170-180, at x 190 and 200. 24h UOP 2.9 L. Potassium 3.4 repleted with 20 mEq, creatinine stable 1.4. Echo showed EF 30 to 35% with grade 2 diastolic dysfunction and severe pulmonary hypertension. Per cardiology will plan for cardiac cath on Saturday 10/20. Continue heparin GGT and aspirin 81 mg daily. Started amlodipine 10 mg daily, carvedilol 3.125 mg twice daily and lisinopril 10 mg daily for hypertension. Iron panel iso new HFrEF. Exam Vital Signs Temp Pulse Resp BP Pulse Ox O2 Del Method O2 Flow Rate 97.8 F 89 18 152/83 H 95 Room Air 2 10/16/25 11:50 10/16/25 12:30 10/16/25 11:50 10/16/25 12:30 10/16/25 11:50 10/16/25 12:30 10/15/25 12:00 FiO2 96 10/16/25 12:30 Narrative Exam GENERAL: AOx3, no acute distress, mildly diaphoretic HEENT: mucous membranes moist, bilateral sclera anicteric CARDIOVASCULAR: regular rate and rhythm, S1/S2 present, no murmurs appreciated PULMONARY: mild crackles at bilateral bases ABDOMINAL: soft, non-tender, non-distended, no rebound/guarding, bowel sounds present EXTREMITIES: no peripheral edema SKIN: warm and dry, intact, no rashes NEURO: CN II-XII grossly intact, no focal deficits, alert, following commands Objective Labs 10/16/25 04:36 10/16/25 04:36 Labs: Laboratory Results - last 24 hr 10/15/25 10/15/25 10/15/25 04:37 10:05 16:45 WBC RBC Hgb Hct MCV MCH MCHC RDW Std Deviation Plt Count Neut % (Auto) Lymph % (Auto) [place] % (Auto) Eos % (Auto) Baso % (Auto) Neut # (Auto) Lymph # (Auto) [place] # (Auto) Eos # (Auto) Baso # (Auto) Immature Gran # (Auto) Absolute Nucleated RBC Immature Gran % Nucleated RBC % APTT 33.7 Sodium Potassium Chloride Carbon Dioxide Anion Gap BUN Creatinine Estim Creat Clear Calc eGFR BUN/Creatinine Ratio Glucose Estimated Ave Glu mg/dL Hemoglobin A1c Calculated Osmolality Calcium Corrected Calcium Phosphorus Magnesium Iron TIBC Iron Saturation Unsat Iron Binding Ferritin Total Bilirubin AST ALT Alkaline Phosphatase Troponin I 0.187 H* Total Protein Albumin Globulin Albumin/Globulin Ratio Triglycerides Cholesterol LDL Cholesterol, Calc HDL Cholesterol Cholesterol/HDL Ratio TSH Coccidioides IgG Ab Negative Coccidioides IgM Ab Negative Cancelled 10/15/25 10/16/25 10/16/25 23:39 04:36 08:43 WBC 10.6 RBC 4.61 Hgb 14.1 Hct 42.3 MCV 92 MCH 30.6 MCHC 33.3 RDW Std Deviation 44.1 H Plt Count 278 Neut % (Auto) 74 Lymph % (Auto) 15 [place] % (Auto) 8 Eos % (Auto) 2 Baso % (Auto) 1 Neut # (Auto) 7.8 H Lymph # (Auto) 1.6 [place] # (Auto) 0.9 H Eos # (Auto) 0.2 Baso # (Auto) 0.1 Immature Gran # (Auto) 0.04 H Absolute Nucleated RBC 0.00 Immature Gran % 0 Nucleated RBC % 0 APTT 39.5 H 43.9 H Sodium 141 Potassium 3.4 Chloride 105 Carbon Dioxide 24.2 Anion Gap 12 BUN 13 Creatinine 1.4 H Estim Creat Clear Calc 60.7 L eGFR > 60 BUN/Creatinine Ratio 9 L Glucose [address] Glu mg/dL 114 Hemoglobin A1c 5.6 Calculated Osmolality 286 Calcium 8.8 Corrected Calcium 8.8 Phosphorus 3.1 Magnesium 2.1 Iron 89 TIBC 321 Iron Saturation 27 Unsat Iron Binding 232 Ferritin 93 Total Bilirubin 0.7 AST 55 H ALT 110 H Alkaline Phosphatase 131 H Troponin I Total Protein 6.9 Albumin 4.3 Globulin 2.6 Albumin/Globulin Ratio 1.7 Triglycerides 91 Cholesterol 165 LDL Cholesterol, Calc 85 HDL Cholesterol 62 H Cholesterol/HDL Ratio 2.7 L TSH 1.53 Coccidioides IgG Ab Coccidioides IgM Ab Quality Measures Quality Measures none Assessment & Plan Assessment Current Active Medications: Generic Name Dose Route Start Last Admin Trade Name Freq PRN Reason Stop Dose Admin Acetaminophen 650 mg 10/15/25 07:49 10/16/25 11:36 Acetaminophen 325 Mg Tablet PO 11/14/25 07:48 650 mg Q6H PRN Administration Fever >100.4 or pain Amlodipine Besylate 10 mg 12/05/25 09:00 Amlodipine Besylate 5 Mg Tablet PO 11/16/25 08:59 QDAY SHANNAN Aspirin 81 mg 10/16/25 09:00 10/16/25 09:18 Aspirin Ec 81 Mg Tabec PO 11/15/25 08:59 81 mg QDAY SHANNAN Administration Atorvastatin Calcium 40 mg 10/15/25 21:00 10/15/25 21:10 Atorvastatin Calcium 20 Mg Tablet PO 11/14/25 20:59 40 mg HS SHANNAN Administration Carvedilol 3.125 mg 10/16/25 17:30 Carvedilol 3.125 Mg Tablet PO 11/15/25 17:29 BIDWM SHANNAN Hydralazine HCl 10 mg 10/15/25 08:10 10/16/25 08:05 Hydralazine Inj 20 Mg/Ml Vial IVP 11/14/25 08:09 10 mg Q4HR PRN Administration SBP >180 Heparin Sodium/Dextrose 25,000 unit in 250 mls @ 9.312 mls/hr 10/15/25 10:40 10/16/25 10:46 Heparin In D5w Ivpb IV 10/29/25 09:44 20 units/kg/hr .Q24H SHANNAN 15.52 mls/hr Protocol Titration 12 UNITS/KG/HR Lisinopril 10 mg 10/16/25 09:00 10/16/25 09:18 Lisinopril 2.5 Mg Tablet PO 11/15/25 08:59 10 mg QDAY SHANNAN Administration Nicotine 14 mg 10/16/25 09:00 10/16/25 09:19 Nicotine Patch 14 Mg/24 Hr Patch.Td24 TOP 11/15/25 08:59 14 mg QDAY SHANNAN Administration Plan Rigoberto Holloway 50M pmhx significant for HTN not on meds who presents to [facility] ED 10/15 with chest pain and SOB, admitted for hypertensive emergency and NSTEMI. #Hypertensive emergency Presents with BP 246/149 with troponin of 0.274->0.259->0.187 as endorgan damage, however NSTEMI type I cannot be excluded given comorbidity of hypertension. Patient's have a history of hypertension but does not take any medications at home. s/p hydralazine and labetalol in ED. A1c 5.6, triglycerides 91, cholesterol 165, LDL 85, HDL 62, TSH wnl Plan: - Amlodipine 10 mg QD, carvedilol 3.125 mg BID and lisinopril 10 mg QD - Hydralazine 10 IVP q4h prn - CTM BP #NSTEMI type I #Prolonged QTc Presents with chest pain and shortness of breath every day for the past month and a half at rest and on exertion. Central, nonradiating however does experience diaphoresis and shortness of breath. Endorses orthopnea, PND and occasional leg swelling. No hx of CHF. EKG shows right bundle branch block with possible ST depression and QTc 526. Troponin 0.274 plateaued. Ddx: NSTEMI type II given hypertensive emergency however NSTEMI type I cannot be ruled out due to comorbidities Plan: - Cardiology consulted, recs appreciated: Heparin GGT, loading dose aspirin and maintenance aspirin 81 mg daily, cardiac cath planned for Monday - Keep K>4 and Mg>2 at all times #HFrEF (30-35%, 10/2025) #Severe pulmonary HTN Newly diagnosed this admission. No hx of heart failure or prior [place]. Endorse orthopnea, PND and mild occasional leg swelling. TTE: LV size mildly enlarged and systolic function moderately reduced. Estimated EF 30 to 35%. Grade 2 diastolic dysfunction. Moderate concentric hypertrophy noted. RV chamber mildly enlarged systolic function normal. RVSP 61 mmHg, severe HTN. Flattening of ventricular septum consistent with RV volume overload mild AVR, mild MVR, mild to moderate TVR, mild pulmonic valve regurgitation, severe enlargement of LA, RA normal, normal IVC estimated RA pressure 3 mmHg Ddx: CAD, illicit substance use and uncontrolled hypertension Plan: - Lisinopril and carvedilol as above, s/p IV lasix 40 mg x1 - Cardiac cath planned for 10/20 - Strict I's and O's, daily weights - F/u iron panel #Amphetamine abuse disorder #Nicotine dependence Patient has 42-23-qxvo-year history of smoking. Denies current illicit drug use however UDS positive for amphetamines. Plan: - Nicotine 14 mg QD - Extensively counseled on cessation of illicit substances Hospital management: Lines: PIV Diet: Cardiac Bowel: not indicated GI prophylaxis: not indicated DVT prophylaxis: heparin ggt Disposition: tele, heparin ggt, cath 10/20 CODE STATUS: FULL CODE Plan of care discussed with attending Dr. Yusuf, and PGY-3 Dr. Kramer. Geovanna Garcia DO PGY-1 Internal Medicine Senior Resident Attestation: The patient reported doing well this morning. He denied any chest pain, SOB, orthopnea or PND. He was mildly hypertensive, with other vitals WNL. CBC fairly stable, CMP revealed improving renal function. The patient was started on amlodipine 10 mg daily, carvedilol 3.125 mg twice daily, lisinopril 10 mg daily for GDMT. Will continue with heparin drip, and iron panel was ordered to rule out hemochromatosis. Physical exam revealed mild bibasilar crackles, we will continue with aspirin 81 mg daily, atorvastatin and he is scheduled for cardiac cath on Monday. I discussed with and supervised the qa intern physician involved in the care of this patient. I personally saw and examined the patient and discussed the assessment and plan with the entire medicine team, including my attending. I agree with the assessment and plan as documented above. Tima Kramer MD PGY3 Internal Medicine Attending Provider Attestation/Addendum I have discussed and was present for the essential components of the history, physical examination, diagnosis, and treatment plan with the resident. I agree with the patient's care as documented by the resident and amended herein by me. Gabriel Yusuf DO. Although this document has been carefully reviewed, there may still be some phonetic and other typographical errors. These errors are purely grammatical due to imperfections in the software program and should not be construed in any way to compromise the substance of the patient's medical care during this visit.
--- NOTE | 2025-10-16 15:31 | PC.SS ---
Update: Plan is for the patient to obtain a cardiac catheter on Monday.
[2025-10-16 18:23] LABS: Partial Thromboplastin Time 51.5 Seconds (22.0-36.0)
[2025-10-16] MEDS: ATORVASTATIN CALCIUM 20 MG TABLET 40 MG PO (20:38)
[2025-10-17] VITALS (11 sets, daily range): BP systolic 151–188; BP diastolic 91–122; PULSE 62–88; RESP 17–18; TEMP 36.2–36.8; O2SAT 96–99; BMI 28.9
[2025-10-17] MEDS: Heparin/D5w 25K 250 ML Ivpb 25,000 UNIT/250 ML BAG 15.52 UNIT IV (01:45)
[2025-10-17 01:58] LABS: Partial Thromboplastin Time 50.5 Seconds (22.0-36.0)
[2025-10-17 05:56] LABS: Basophils # (Auto) 0.1 Thou/mm3 (0.0-0.2); Basophils % (Auto) 1 % (0-2.5); Eosinophils # (Auto) 0.2 Thou/mm3 (0.0-0.5); Eosinophils % (Auto) 2 % (0-10); Hematocrit 45.0 % (41.0-53.0); Hemoglobin 14.9 g/dL (13.5-16.0); Immature Granulocytes Auto 0.04 Thou/mm3 (0.00-0.00); Lymphocytes # (Auto) 1.4 Thou/mm3 (1.0-4.8); Lymphocytes % (Auto) 15 % (10-50); Mean Corpuscular HGB Conc 33.1 g/dl (31.0-37.0); Mean Corpuscular Hemoglobin 30.0 pg (25.0-35.0); Mean Corpuscular Volume 91 fL (80-100); Monocytes # (Auto) 0.7 Thou/mm3 (0.0-0.8); Monocytes % (Auto) 7 % (0-12); Neutrophils # (Auto) 7.2 Thou/mm3 (1.8-7.7); Neutrophils % (Auto) 75 % (37-80); Nucleated Red Blood Cell # 0.00 Thou/mm3 (0.00-0.00); Nucleated Red Blood Cell % 0 /100 WBC (0); Platelet Count 301 Thou/mm3 (140-440); RDW Standard Deviation 41.6 fL (35.1-43.9); Red Blood Count 4.97 Miln/mm3 (4.50-5.90); White Blood Count 9.6 Thou/mm3 (3.8-10.6)
[2025-10-17 06:23] LABS: INR 1.1 (0.9-1.3); Partial Thromboplastin Time 52.4 Seconds (22.0-36.0); Prothrombin Time 11.3 Seconds (9.0-12.2)
[2025-10-17 06:26] LABS: Alanine Aminotransferase 75 U/L (10-49); Albumin, Serum 4.1 gm/dL (3.5-5.0); Albumin/Globulin Ratio 1.6 (1.2-2.2); Alkaline Phosphatase 122 U/L (46-116); Anion Gap 12 (7-16); Aspartate Amino Transferase 31 U/L (0-34); BUN/Creatinine Ratio 12 Ratio (12-20); Bilirubin,Total 0.5 mg/dL (0.3-1.2); Blood Urea Nitrogen 18 mg/dL (9-23); Calcium 8.8 mg/dL (8.3-10.6); Calcium (Corrected) 8.8 mg/dL (8.5-10.1); Carbon Dioxide 24.7 mMol/L (20.0-31.0); Chloride 104 mMol/L (98-107); Creatinine (Component) 1.5 mg/dL (0.6-1.3); Estimated Creatinine Clearance 57.1 mL/min (>60); Globulin 2.6 gm/dL (2.3-3.5); Glucose 151 mg/dL (74-106); Magnesium 2.2 mg/dL (1.6-2.6); Osmolality,Calculated 286 (275-295); Potassium 3.6 mMol/L (3.4-5.1); Sodium 141 mMol/L (136-145); Total Protein 6.7 gm/dL (5.7-8.2); eGFR 56 See Note
[2025-10-17] MEDS: hydrALAZINE INJ 20 MG/ML VIAL 10 MG IVP (07:44)
[2025-10-17] MEDS: ACETAMINOPHEN 325 MG TABLET 650 MG PO (07:47)
--- NOTE | 2025-10-17 07:50 | PC.NURSE ---
Blood pressure 180/101. Patient denies chest pain or shortness of breath. MD aware.
[2025-10-17] MEDS: ASPIRIN EC 81 MG TABEC PO (08:03)
[2025-10-17] MEDS: NICOTINE PATCH 14 MG/24 HR PATCH.TD24 TOP (08:04)
--- NOTE | 2025-10-17 08:37 | PC.SS ---
Follow up note: Blood pressure control. Cath on Monday.
--- NOTE | 2025-10-17 14:16 | PC.NURSE ---
Patient left against medical advice (see AMA form). Dr. Kramer and Nick explained the consequences of leaving to the patient and verbalized understanding. Patient alert and oriented x 4. IV's removed. Patient left the unit 1346.
--- NOTE | 2025-10-17 14:42 | PD.RESDS ---
Planned Discharge Date 10/17/25 DS: Providers Provider Date of admission: 10/15/25 07:43 Primary care physician: Physician No Primary/Family Admitting Provider: Samm Yusuf DO Attending Provider on Admission: Samm Yusuf DO Consults: 10/15/25 07:48 Consult to Cardiology Stat Comment: Consulting Provider: Tay Ross Attending Provider on DC: Samm Yusuf DO Discharging Provider: Samm Yusuf DO DS: Diagnosis Problem List Completed Was Problem List Reviewed/Reconciled?: Yes Hospital Course Hospital Course Hospital course: Summary: Rigoberto Holloway 50M pmhx significant for HTN not on meds and amphetamine abuse who presents to [facility] ED 10/15 with chest pain and SOB, admitted for hypertensive emergency and NSTEMI. Presented with chest pain and shortness of breath every day for the past month and a half at rest and on exertion. Central, nonradiating however does experience diaphoresis and shortness of breath. Endorses orthopnea, PND and occasional leg swelling with no hx of CHF. On admission BP 246/149 and troponins 0.274 and downtrended and UDS positve for amphetamines. Patient treated with IV antihypertensives which were subsequently adjusted given blood pressure. Given patient's history of uncontrolled hypertension, likely NSTEMI type I and cardiology consulted. Patient started on heparin ggt and scheduled for cardiac cath on 10/20/25. Echo was taken to assess cardiac function and echo results are as below, new diagnoses include HFrEF 30 to 35% and severe pulmonary hypertension. Given findings, GDMT initiated and adjusted however on 10/17/2025, patient decided to leave AMA prior to cardiac cath and further adjustment of antihypertensives. 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 The risks have been explained to the patient, including progression of possible heart attack, recurrence of shortness of breath, worsening illness, permanent disability and . The benefits of admission have also been explained, including the availability and proximity of nurses, physicians, monitoring, diagnostic testing, treatment, cardiology evaluation and scheduled cardiac catheterization. The patient was able to understand and state the risks and benefits of hospital admission and had the opportunity to ask questions about their medical condition. The patient was treated to the extent that patient would allow and knows that they may return for care at any time. Patient was encouraged to visit PCP and follow up with cardiology outpatient. Patient was encouraged to start ASA, atorvastatgin 40 mg daily, carvedilol 12.5 mg twice daily, lisinopril 40 mg daily and spironolactone 25 mg twice daily. Imaging: CXR: Mild CHF 10/15/25 TTE: LV size mildly enlarged and systolic function moderately reduced. Estimated EF 30 to 35%. Grade 2 diastolic dysfunction. Moderate concentric hypertrophy noted. RV chamber mildly enlarged systolic function normal. RVSP 61 mmHg, severe HTN. Flattening of ventricular septum consistent with RV volume overload mild AVR, mild MVR, mild to moderate TVR, mild pulmonic valve regurgitation, severe enlargement of LA, RA normal, normal IVC estimated RA pressure 3 mmHg Hospital Diagnoses: #Hypertensive emergency #NSTEMI type I #Prolonged QTc #HFrEF (30-35%, 10/2025) #Severe pulmonary HTN #Amphetamine abuse disorder #Nicotine dependence Plan of care discussed with attending Dr. Yusuf, and PGY-3 Dr. Kramer. Geovanna Garcia, DO Internal Medicine, PGY-1 Senior Resident Attestation: The patient was counseled about half an hour to change his mind regarding leaving AGAINST MEDICAL ADVICE, but he reported that he has made his mind despite mentioning that it would be compromised with his life, he demanded to leave AGAINST MEDICAL ADVICE. He was alert and oriented x 4, reported that he needs to take care of of his parents at home, and understood that if he leaves AGAINST MEDICAL ADVICE, he might . However, he was requested to return back to emergency department at any time if his symptoms are worse or not improving or call 911. I discussed with and supervised the internet systems administrator physician involved in the care of this patient. I personally saw and examined the patient and discussed the assessment and plan with the entire medicine team, including my attending. I agree with the assessment and plan as documented above. Tima Kramer MD PGY3 Internal Medicine Time Spent with Patient Time attestation: Total time spent providing and/or coordinating discharge services: Time spent: Greater than 30 minutes Exam Vital Signs Temp Pulse Resp BP Pulse Ox O2 Del Method O2 Flow Rate 97.1 F 77 17 151/95 H 96 Room Air 2 10/17/25 11:48 10/17/25 11:48 10/17/25 11:48 10/17/25 11:48 10/17/25 11:48 10/17/25 11:48 10/15/25 12:00 FiO2 98 10/16/25 16:00 Narrative Exam GENERAL: AOx3, no acute distress, anxious HEENT: mucous membranes moist, bilateral sclera anicteric CARDIOVASCULAR: regular rate and rhythm, S1/S2 present, no murmurs appreciated PULMONARY: minimal crackles at bilateral bases ABDOMINAL: soft, non-tender, non-distended, no rebound/guarding, bowel sounds present EXTREMITIES: no peripheral edema SKIN: warm and dry, intact, no rashes NEURO: CN II-XII grossly intact, no focal deficits, alert, following commands Discharge Plan Plan Patient Disposition: Left Against Medical Advice Patient condition on transfer: Stable Care Plan Goals: - You have been started on a blood pressure medication amlodipine. Take once a day - Take aspirin once a day - Take atorvastatin once a day - Follow up with Cardiology within 1 week - Follow up with your primary care physician within 1 week of discharge. If you do not have a primary care physician, please follow up with the [facility] Residents clinic ([phone]) ? If you experience any new, worsening or persistent symptoms either call your primary doctor, or dial 911 or present to the emergency department. Prescriptions/Referrals Prescriptions/Med Rec: New atorvastatin 20 mg Tablet 40 mg PO HS 30 Days Qty: 60 2RF nicotine 14 mg/24 hr Patch 24 Hour 14 mg top QDAY 14 Days Qty: 14 0RF aspirin 81 mg Tablet,Delayed Release (Dr/Ec) 81 mg PO QDAY 30 Days Qty: 30 3RF lisinopril 40 mg tablet 40 mg PO QDAY 30 Days Qty: 30 4RF carvedilol [Coreg] 12.5 mg tablet 12.5 mg PO BIDWM 30 Days Qty: 60 4RF spironolactone 25 mg Tablet 25 mg PO BID 30 Days Qty: 60 2RF Referrals: [facility] [Outside] No Primary/Family,Physician [Primary Care Provider] Patient/Caregiver Discharge Instructions Education Materials: Heart Attack Dc, Heart Attack Meds, Heart Attack Questions, Heart Attack: Leaving the Hospital Print Language: Frisian Stand Alone Forms: Claudine Award Info., Patient Portal Info Letter Quality Discharge Quality Measures VTE prophylaxis MD Attestestation MD Attestation The patient left AGAINST MEDICAL ADVICE despite us extensively cautioning him him from leaving for fear of possible MA and . The patient understood however decided to leave anyways. Patient was prescribed aspirin and statin, Coreg, lisinopril and spironolactone for the outpatient setting, we recommend he follow-up with cardiology as soon as possible for further workup and evaluation and he understood.
== END 2025-10-17 13:46 | disposition left against medical advice (07) | DRG 190 ==
LOC: SERX 07:34 → SERHOLD 08:05 → S2SX 14:17 → S3NX 10-16 19:30
PROVIDERS: Physician Assistant; Admitting Provider Student in an Organized Health Care Education/Training Program; Emergency Provider Emergency Medicine; Visit Provider Student in an Organized Health Care Education/Training Program
DX: I21.4 Non-ST elevation (NSTEMI) myocardial infarction (principal); I16.1 Hypertensive emergency; F17.200 Nicotine dependence, unspecified, uncomplicated; I10 Essential (primary) hypertension; I45.10 Unspecified right bundle-branch block; I27.20 Pulmonary hypertension, unspecified; F15.10 Other stimulant abuse, uncomplicated; I11.0 Hypertensive heart disease with heart failure; I50.20 Unspecified systolic (congestive) heart failure; Z53.29 Procedure and treatment not carried out because of patient's decision for other reasons; Z79.82 Long term (current) use of aspirin; Z79.899 Other long term (current) drug therapy
CPT/HCPCS: 36415; 71046; 80053; 80061; 80307; 81001; 82728; 83036; 83540; 83550; 83605; 83735; 83880; 84100; 84145; 84443; 84484; 85025; 85610; 85730; 86331; 86635; 87502; 87811; 93005; 93225; 93306; 96374; 99284; J0360; J1644; J1920; J1938; J3475; A9270